=== PATIENT | female | born 1955 | race Caucasian/White ===

== ENCOUNTER 2019-06-11 05:45 | Day surgery (SDC) | payer BC ==
[2019-06-10 12:57] LABS: BASOPHILS 0.2 % (0-2); EOSINOPHILS 0.9 % (0-7); HEMATOCRIT 41.8 % (36.0-48.0); HEMOGLOBIN 13.9 g/dL (12-16); IMMATURE GRANULOCYTES 0.3 % (0-5); MCH 31.4 pg (26.0-34.0); MCHC 33.3 g/dL (31.0-37.0); MCV 94.4 fL (80.0-100.0); MEAN PLATELET VOLUME 9.4 fL (7.4-10.4); MONOCYTES 8.4 % (2-11); NEUTROPHILS 61.2 % (40-80); PLATELET COUNT 330 10x3/uL (130-400); RBC 4.43 10x6/uL (4.00-5.40); RDW 13.1 % (11.5-14.5); WBC 9.8 10x3/uL (4.8-10.8)
[2019-06-10 12:58] LABS: CALC OSMOLALITY 284 mosm/kg (275-300); CALCIUM 9.4 mg/dL (8.5-10.1); CARBON DIOXIDE 32.7 mmol/L (21.0-32.0); CHLORIDE - SERUM 105 mmol/L (98-107); CREATININE - SERUM 0.7 mg/dL (0.6-1.3); GLUCOSE 100 mg/dL (74-106); POTASSIUM - SERUM 3.7 mmol/L (3.5-5.1); SODIUM 143 mmol/L (136-145); UREA NITROGEN 13 mg/dL (7-18); eGFR NON AFRICAN AMERICAN 89 mL/min (90-120)
[2019-06-10 13:03] LABS: APTT 25.1 SECONDS (22.8-39.4); INR 0.94 (0.85-1.17); PROTIME 12.5 SECONDS (11.6-15.0)
[~2019-06-11] VITALS: Ht 162.6 cm; Wt 79.4 kg
[2019-06-11 06:33] VITALS: BP 139/93; Ht 162.6 cm; Wt 79.4 kg
--- NOTE | 2019-06-11 08:41 | NUR ---
HUMIDITY WAS NOTED AT BEGINNING OF SET UP TO BE 63%, SURGEON STATED HE WOUND PROCEED WITH THAT-SH
--- NOTE | 2019-06-11 10:28 | NUR ---
PATIENT DENIES ANY NUMBNESS/TINGLING TO ARMS/LEGS. STRATEGIC COMMUNICATIONS SPECIALIST ARE EQUAL. SENSATIONS INTACT.
--- NOTE | 2019-06-11 12:52 | NUR ---
1045 NUEROS INTACT, GOOD EXTENSION AND FLEXION. GOOD SENSATION TOBILATERAL LEGS. 1145 WEANING PT OFF OF O2. DRESSING CLEAN AND DRY. WALKED TO BATHROOM AND HAS NUMBNESS TO RIGHT LEG BELOW THE LEG. FOOT INTACT. UNSTEADY ON FEET. DR SAUL OFFICE CALLED AND NOTIFIED.
--- NOTE | 2019-06-11 14:05 | NUR ---
1310 DR SAUL OFFICE CALLED AND NO ORDERS GIVEN ABOUT NUMBNESS TO RIGHT LEG. DR STATED SHE HAD THAT PRE SURGERY. EVEN THOUGH PT STATED SHE DID NOT. PT ABLE TO WALK WELL WITH WALKER. RX FOR A WALKER GIVEN TO PT BECAUSE [place] ST[place] FAMILY. INFORMED PT IF NUMBNESS GETS WORSE TO CALL AMITA SAUL.
--- NOTE | 2019-06-11 14:07 | NUR ---
1320 IV REMOVED AND INSTRUCTIONS GIVEN. DRESSING CLEAN AND DRY
--- NOTE | 2019-06-20 14:29 | OP ---
PATIENT NAME: MICHAEL MELO MEDICAL RECORD: [id number] :55 LOCATION:D[facility] ADMISSION DATE: SURGEON: CK SAUL MD DATE OF OPERATION: 06/11/2019 DATE OF SERVICE: 06/11/2019 PREOPERATIVE DIAGNOSES: Disk herniation and lumbar spondylosis with lumbar spinal stenosis at L1-L2 on the right with right L2 radiculopathy. POSTOPERATIVE DIAGNOSES: Disk herniation and lumbar spondylosis with lumbar spinal stenosis at L1-L2 on the right with right L2 radiculopathy. PROCEDURE: Right L1-L2 lumbar laminectomy, medial facetectomy and foraminotomy with discectomy with METRx retractor. SURGEON: Ck Saul MD DESCRIPTION AND TECHNIQUE: After induction of general endotracheal anesthesia, the patient was rolled prone on a Dao frame. Lumbar spine was prepped and draped in usual sterile fashion. Fluoroscopic x-ray and a spinal needle localized the L1-L2 interspace on the right side. After infiltration of 1:100,000 epinephrine with 1% lidocaine, a stab incision was created with a #11 blade. Series of dilators was used to advance a METRx retractor to the L1-L2 interspace on the right side. The level was confirmed with fluoroscopic x-ray. A microscope and Midas Aneesh drill were used to perform a laminectomy, medial facetectomy, and foraminotomy at L1-L2 on the right. Hypertrophied ligamentum flavum was removed with Cloward rongeurs. Following this, the L1 and L2 nerve roots were decompressed well. There is free fragment disk herniation within the axilla within the L1 nerve root. This was removed in a sterile fashion with pituitary rongeurs. Following this, the L1 and L2 nerve roots were decompressed well. Meticulous hemostasis was maintained throughout the wound. The wound was irrigated with copious amounts of Ancef irrigant solution. The fascia was closed with 2-0 Vicryl suture, the subdermal layer was closed with 3-0 Vicryl suture. The skin was closed with kita. A sterile dressing was applied to the wound. The patient was awakened in good condition and taken to recovery. All counts were reported to be correct. Estimated blood loss was minimal. TRANSINT:[id number] Voice Confirmation ID: [id number] DOCUMENT ID: [id number] CK SAUL MD at 1429 CC: [id number] DICTATION DATE: 06/20/19 0947 OPERATIONS SUPERVISOR CHEMICAL CLEANING: 06/20/19 1014 [facility] 06/11/19 [id number] [place] [address]
== END 2019-06-11 13:45 | disposition home or self-care (01) ==
LOC: D.OPS 05:45 → D.PAN 07:30 → D.OPS 07:30
PROVIDERS: Anesthesiology; ATTEND Neurological Surgery
DX: M51.26 Other intervertebral disc displacement, lumbar region (principal); M47.816 Spondylosis without myelopathy or radiculopathy, lumbar region; M48.061 Spinal stenosis, lumbar region without neurogenic claudication; M54.16 Radiculopathy, lumbar region; M53.86 Other specified dorsopathies, lumbar region

== ENCOUNTER 2019-08-15 08:41 | Day surgery (SDC) | payer BC ==
[2019-08-13 10:51] LABS: CALC OSMOLALITY 282 mosm/kg (275-300); CALCIUM 8.5 mg/dL (8.5-10.1); CARBON DIOXIDE 27.2 mmol/L (21.0-32.0); CHLORIDE - SERUM 107 mmol/L (98-107); CREATININE - SERUM 0.8 mg/dL (0.6-1.3); GLUCOSE 106 mg/dL (74-106); SODIUM 141 mmol/L (136-145); UREA NITROGEN 19 mg/dL (7-18); eGFR NON AFRICAN AMERICAN 76 mL/min (90-120)
[2019-08-13 10:52] LABS: BASOPHILS 0.2 % (0-2); EOSINOPHILS 0.5 % (0-7); HEMATOCRIT 38.5 % (36.0-48.0); IMMATURE GRANULOCYTES 0.3 % (0-5); LYMPHOCYTES 15.6 % (15-50); MCH 29.4 pg (26.0-34.0); MCHC 31.2 g/dL (31.0-37.0); MCV 94.4 fL (80.0-100.0); MEAN PLATELET VOLUME 9.1 fL (7.4-10.4); MONOCYTES 6.1 % (2-11); NEUTROPHILS 77.3 % (40-80); PLATELET COUNT 279 10x3/uL (130-400); RBC 4.08 10x6/uL (4.00-5.40); WBC 9.9 10x3/uL (4.8-10.8)
[2019-08-13 11:23] LABS: APTT 21.9 SECONDS (22.8-39.4); INR 0.83 (0.85-1.17); PROTIME 11.4 SECONDS (11.6-15.0)
[~2019-08-15] VITALS: Ht 162.6 cm; Wt 79.4 kg
--- NOTE | ~2019-08-15 | OP ---
PATIENT NAME: MICHAEL MELO MEDICAL RECORD: [id number] :55 LOCATION:D.[facility] ADMISSION DATE: SURGEON: CK SAUL MD DATE OF OPERATION: 08/15/2019 PREOPERATIVE DIAGNOSIS: Left L1-L2 disc herniation with the left L1 radiculitis. PROCEDURE: Lumbar laminectomy, medial facetectomy and foraminotomy, discectomy L1-L2 left with METRx retractor. SURGEON: Ck Saul MD DESCRIPTION AND TECHNIQUE: After induction of general endotracheal anesthesia, the patient was rolled prone on a Dao frame. A spinal needle and fluoroscopic x-ray used to identify the L1-L2 interspace on the left side. Next, after infiltration of 1:100,000 epinephrine with 1% lidocaine, a stab incision was created with a #11 blade. A series of dilators were used to advance a METRx retractor to the L1-L2 interspace on the left side. Level was confirmed with fluoroscopic x-ray. A microscope and Midas Aneesh drill were used to perform a laminotomy, medial facetectomy and foraminotomy at L1-L2 on the left. Hypertrophied ligamentum flavum was removed with Cloward rongeurs. Following this, there was obvious free fragment disc herniation within the canal, compressing the left L1 and L2 nerve roots within the axilla of the L1 nerve root. This was removed in piecemeal fashion with pituitary rongeurs. Following this, there were no further fragments within the canal. The nerve roots were decompressed well. Meticulous hemostasis was maintained throughout the wound. The wound was irrigated with copious amounts of Ancef irrigant solution. The retractor was removed. The fascia was closed with 2-0 Vicryl suture. Subdermal layer was closed with 3-0 Vicryl suture. The skin was reapproximated with kita. A sterile dressing was applied to the wound. The patient was awakened in good condition and taken to recovery. All counts were reported as correct. Estimated blood loss was minimal. TRANSINT:[id number] Voice Confirmation ID: [id number] DOCUMENT ID: [id number] CK SAUL MD CC: [id number] DICTATION DATE: 08/19/19 0832 GLASS INSTALLER: 08/19/19 1227 [facility] 08/15/[address] [address]
[~2019-08-15 08:41] MED LIST: DUEXIS 800-26.1 EACH PO; NEURONTIN600 MG PO; PREDNISONE5 MG PO; ULTRAM50 MG PO
[2019-08-15] MEDS ORDERED: MILK OF MAGNESI30 ML PO (09:06)
[2019-08-15 09:10] VITALS: BP 116/62; Ht 162.6 cm; Wt 79.4 kg
[2019-08-15 15:45] LABS: HEMATOCRIT 28.5 % (36.0-48.0); HEMOGLOBIN 8.7 g/dL (12-16)
[2019-08-15] MEDS ORDERED: DUEXIS 800-26.1 EACH PO (16:01)
--- NOTE | 2019-08-15 16:18 | NUR ---
1605-RETURNED TO ROOM FROM PACU. ALERT. IV PATENT. RESP WITH EASE. LUMBAR DRESSING DRY AND INTACT. NELI BARBER, NOTIFIED OF SURGERY COMPLETE AND BACK TO ROOM, EXPECTED DISCHARGE IN ONE HOUR.
--- NOTE | 2019-08-15 17:07 | NUR ---
1705-D/C VIA WHEELCHAIR TO PRIVATE AUTO WITH [employer].
== END 2019-08-15 17:05 | disposition home or self-care (01) ==
LOC: D.OPS 08:41 → D.PAN 10:45 → D.OPS 17:05
PROVIDERS: Anesthesiology; ATTEND Neurological Surgery
DX: M51.16 Intervertebral disc disorders with radiculopathy, lumbar region (principal); M35.3 Polymyalgia rheumatica